=== PATIENT | male | born 1980 | race Two or more races ===

== ENCOUNTER 2017-05-26 21:41 | Observation (INO) | payer SELFPAY ==
[~2017-05-26] VITALS: Ht 175.3 cm; Wt 78.0 kg
[2017-05-26] MEDS ORDERED: ZIPRASIDONE 20 MG INJ IM ONE ×2 (22:00→22:33)
[2017-05-26] MEDS ORDERED: LORazepam 2 MG/ML, 1ML IM ONE (22:00)
[2017-05-26 22:15] LABS: DAU SCREEN DISCLAIMER
[2017-05-26 22:41] LABS: BLOOD UREA NITROGEN 19 mg/dL (7-18)
[2017-05-26] MEDS ORDERED: LORazepam 2 MG/ML, 1ML ONE (22:41)
[2017-05-26 22:47] LABS: ACETAMINOPHEN < 2 mcg/mL (10-30)
[2017-05-26] MEDS ORDERED: ONDANSETRON ODT 4 MG PO PRN (23:30)
[2017-05-26] MEDS ORDERED: POLYETHYLENE GLYCOL 17 GM PACKET PO PRN (23:30)
[2017-05-26] MEDS ORDERED: DOCUSATE 100 MG CAPSULE PO PRN (23:30)
[2017-05-26] MEDS ORDERED: BISACODYL 10 MG SUPP PR PRN (23:30)
[2017-05-26] MEDS ORDERED: ACETAMINOPHEN 325 MG TABLET PO PRN (23:30)
[2017-05-27 02:08] VITALS: BP 94/58
[2017-05-27 05:42] LABS: BLOOD UREA NITROGEN 17 mg/dL (7-18)
[2017-05-27 08:05] VITALS: BP 109/66
[2017-05-27] MEDS ORDERED: NICOTINE 14MG/24 HR PATCH.TD24 ONE (16:23)
[2017-05-27] MEDS: NICOTINE 14MG/24 HR PATCH.TD24 TD SCH (16:28)
[2017-05-27 19:14] VITALS: BP 138/79
[2017-05-27] MEDS: ZIPRASIDONE 20 MG INJ IM PRN (23:41)
[2017-05-28 07:31] VITALS: BP 116/72
[2017-05-28] MEDS: NICOTINE 14MG/24 HR PATCH.TD24 TD SCH (16:52)
[2017-05-28] MEDS: ZIPRASIDONE 20 MG INJ IM PRN (20:23)
[2017-05-28 20:34] VITALS: BP 120/73
[2017-05-29 07:33] VITALS: BP 93/55
[2017-05-29] MEDS: ZIPRASIDONE 20MG CAPSULE PO PRN ×2 (11:30→16:27)
[2017-05-29] MEDS: NICOTINE 14MG/24 HR PATCH.TD24 TD SCH (16:27)
[2017-05-29] MEDS ORDERED: MAGNESIUM CITRATE 300ML ORAL SOL PO PRN (17:00)
[2017-05-29] MEDS: ZIPRASIDONE 40MG CAPSULE PO SCH (18:09)
[2017-05-29 19:30] VITALS: BP 110/65
[2017-05-30 07:24] VITALS: BP 123/74
[2017-05-30] MEDS: ZIPRASIDONE 40MG CAPSULE PO SCH ×2 (08:04→16:56)
[2017-05-30] MEDS: NICOTINE 14MG/24 HR PATCH.TD24 TD SCH (16:30)
[2017-05-30] MEDS ORDERED: TRAZODONE 50MG TABLET PO ONE (18:00)
[2017-05-30 19:29] VITALS: BP 119/73
== END 2017-05-30 21:48 ==
LOC: ED 23:23 → INTOOBSV 23:35 → EDIP 23:35 → 3E 05-27 02:09
PROVIDERS: ADMIT Internal Medicine; ATTEND Internal Medicine
DX: R45.851 Suicidal ideations (principal); F31.9 Bipolar disorder, unspecified; F20.9 Schizophrenia, unspecified; F15.10 Other stimulant abuse, uncomplicated; D72.829 Elevated white blood cell count, unspecified; F32.9 Major depressive disorder, single episode, unspecified; F19.10 Other psychoactive substance abuse, uncomplicated; R79.89 Other specified abnormal findings of blood chemistry; Z91.5 Personal history of self-harm; Z91.19 Patient's noncompliance with other medical treatment and regimen
CPT/HCPCS: 36415; 80048; 80307; 80329; 82040; 85025; 96372; 99285; G0378; J2060; J3486; G0480

== ENCOUNTER 2018-03-18 20:38 | Emergency (ER) | payer SELFPAY ==
[~2018-03-18] VITALS: Ht 180.3 cm; Wt 84.1 kg
[2018-03-18 21:22] LABS: BASOPHILS # (AUTO) 0.08 x10^3/uL (0-0.1); BASOPHILS % (AUTO) 1 % (0-1); EOSINOPHILS # (AUTO) 0.59 x10^3/uL (0-0.4); EOSINOPHILS % (AUTO) 7 % (1-7); LYMPHOCYTES # (AUTO) 2.63 x10^3/uL (1-3.4); LYMPHOCYTES % (AUTO) 30 % (22-44); MD NO; MEAN CORPUSCULAR HEMOGLOBIN 29.2 pg (27.5-34.5); MEAN CORPUSCULAR HGB CONC 33.8 g/dL (33.2-36.2); MEAN CORPUSCULAR VOLUME 86.3 fL (81-97); MEAN PLATELET VOLUME 8.3 fL (7.4-10.4); MONOCYTES # (AUTO) 0.46 x10^3/uL (0.2-0.8); MONOCYTES % (AUTO) 5 % (2-9); NEUTROPHILS # (AUTO) 4.94 x10^3/uL (1.8-6.8); NEUTROPHILS % (AUTO) 57 % (42-75); PLATELET COUNT 221 x10^3/uL (130-400); RED BLOOD COUNT 4.53 x10^6/uL (4.38-5.82); RED CELL DISTRIBUTION WIDTH 14.1 % (9.4-14.8)
[2018-03-18 21:35] LABS: ALBUMIN 3.6 g/dL (3.4-5.0); ANION GAP 7 mmol/L (5-15); CALCIUM 8.8 mg/dL (8.5-10.1); CHLORIDE 110 mmol/L (98-107); CREATININE 0.82 mg/dL (0.7-1.3)
[2018-03-18 21:38] LABS: SALICYLATE LEVEL < 1.7 mg/dL (2.8-20.0)
[2018-03-18 21:39] LABS: ACETAMINOPHEN < 2 mcg/mL (10-30)
[2018-03-18 23:41] VITALS: BP 126/68
== END 2018-03-19 01:32 ==
LOC: ED 03-19 01:26
DX: F33.9 Major depressive disorder, recurrent, unspecified (principal); Z72.9 Problem related to lifestyle, unspecified; F25.9 Schizoaffective disorder, unspecified; F33.0 Major depressive disorder, recurrent, mild; Z91.5 Personal history of self-harm
CPT/HCPCS: 36415; 80048; 80307; 80329; 82040; 85025; 99284; G0480